=== PATIENT | male | born 2000 | race African-American/Black ===

== ENCOUNTER 2020-07-31 05:50 | Emergency (ER) | payer OTHER ==
[2020-07-31] MEDS ORDERED: Boostrix 0.5 ML (Tdap) VIAL ONE (06:48)
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
[2020-07-31] MEDS ORDERED: Iopamidol-370 76% 500 ML 1 ML ONE (11:41)
== END 2020-07-31 07:31 | disposition home or self-care (01) ==
LOC: ERS 05:50
DX: S00.12XA Contusion of left eyelid and periocular area, initial encounter (principal); S00.11XA Contusion of right eyelid and periocular area, initial encounter; S00.83XA Contusion of other part of head, initial encounter; S80.212A Abrasion, left knee, initial encounter; S80.211A Abrasion, right knee, initial encounter; R00.0 Tachycardia, unspecified; F17.220 Nicotine dependence, chewing tobacco, uncomplicated; V89.2XXA Person injured in unspecified motor-vehicle accident, traffic, initial encounter
CPT/HCPCS: 70450; 71045; 71260; 72125; 74177; 90471; 90715; G0390; Q9967